=== PATIENT | male | born 1995 | race Caucasian/White ===

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

== ENCOUNTER → 2017-06-22 | Outpatient (REF) | payer OTHER | LOC: M LAB REF 10:04 | DX: R50.9 Fever, unspecified (principal); R05 Cough | CPT/HCPCS: 87633 ==

== ENCOUNTER 2018-12-05 06:35 | Emergency (ER) | payer OTHER, SELFPAY ==
[~2018-12-05] VITALS: Ht 180.3 cm; Wt 90.9 kg
[~2018-12-05 06:35] MED LIST changes: +AMOX875T PO; +CLIN1SOL; +ZOFR4TAB14 PO; -[UNRECOGNIZED DRUG - CODE]
[2018-12-05] MEDS ORDERED: NS 1,000 ML IV ONE (07:15)
[2018-12-05 08:02] VITALS: BP 132/60
== END 2018-12-05 08:12 | disposition home or self-care (01) ==
LOC: M ED 07:34
DX: E86.0 Dehydration (principal); Z88.1 Allergy status to other antibiotic agents; Z88.2 Allergy status to sulfonamides

== ENCOUNTER 2019-03-29 14:04 | Emergency (ER) | payer SELFPAY ==
[~2019-03-29] VITALS: Ht 180.3 cm; Wt 95.5 kg
[2019-03-29] MEDS ORDERED: LIDOCAINE 1% MDV 20ML VIAL SC ONE (17:15)
--- NOTE | 2019-03-29 18:16 | REPVR ---
PROCEDURE INFORMATION: Exam: US Pelvis Limited, Male Exam date and time: 03/29/2019 6:01 PM Clinical history: 23 years old, male; Pain; Other: Coccyx; Additional info: Red, painful skin absces vs cellulitis TECHNIQUE: Imaging protocol: Real-time pelvic ultrasound with image documentation. COMPARISON: Pelvis, limited US 08/11/2016 8:28 PM FINDINGS: Soft tissues: Fluid-filled mass demonstrated in the soft tissues adjacent to the coccyx measures 9.9 x 2.2 x 3.1 cm, slightly smaller than demonstrated in 2017. Findings may represent a abscess versus pilonidal cyst. IMPRESSION: Fluid-filled mass demonstrated in the soft tissues adjacent to the coccyx measures 9.9 x 2.2 x 3.1 cm, slightly smaller than demonstrated in 2017. Findings may represent a abscess versus pilonidal cyst. Electronically signed by: Pedro Rodriguez On 03/29/2019 18:15:38 PM
[2019-03-29] MEDS ORDERED: CLINDAMYCIN 150 MG CAP PO ONE (19:00)
[2019-03-29] MEDS ORDERED: CLEO300C2 PO (19:02)
[2019-03-29 19:27] VITALS: BP 150/67
--- NOTE | 2019-03-30 10:28 | ED PDOC ---
Post-Departure Follow-Up dr boyer faxed formal report of pelvic us for fu Sofia Estrada MD Mar 30, 2019 10:28
== END 2019-03-29 19:42 | disposition home or self-care (01) ==
LOC: M ED 14:04
DX: L05.91 Pilonidal cyst without abscess (principal); F17.200 Nicotine dependence, unspecified, uncomplicated; Z88.1 Allergy status to other antibiotic agents; Z88.2 Allergy status to sulfonamides

== ENCOUNTER 2023-09-19 09:50 | Emergency (ER) | payer MEDICAID, OTHER, SELFPAY ==
[~2023-09-19] VITALS: Ht 180.3 cm; Wt 70.7 kg
[~2023-09-19 09:50] MED LIST changes: -DOXY100C; +DOXY100C3
[2023-09-19] MEDS: NS 1,000 ML IV ONE (12:24)
[2023-09-19] MEDS: KETOROLAC 30 MG/ML 1ML VIAL IV ONE (12:25)
[2023-09-19 12:32] LABS: BASO # 0.1 10^3/uL (0.0-0.2); BASO % 0.5 % (0.0-1.0); EOS # 0.1 10^3/uL (0.0-0.5); EOS % 0.6 % (0.0-3.0); HEMATOCRIT 42.2 % (42.0-52.0); HEMOGLOBIN 13.9 g/dl (13.5-17.5); LYMPH # 1.6 10^3/uL (1.5-5.0); LYMPH % 9.6 % (24.0-44.0); MEAN CORPUSCULAR HEMOGLOBIN 28.7 pg (27.0-33.0); MEAN CORPUSCULAR HGB CONC 32.9 g/dl (32.0-36.5); MONO # 0.9 10^3/uL (0.0-0.8); MONO % 5.3 % (2.0-8.0); NEUTROPHILS # 13.6 10^3/uL (1.5-8.5); NEUTROPHILS % 83.4 % (36.0-66.0); PLATELET COUNT, AUTOMATED 248 10^3/uL (150-450); RED BLOOD COUNT 4.85 10^6/uL (4.30-6.10); WHITE BLOOD COUNT 16.3 10^3/uL (4.0-10.0)
[2023-09-19 12:57] LABS: BLOOD UREA NITROGEN 11 MG/DL (9-23); CALCIUM LEVEL 9.6 MG/DL (8.5-10.1); CARBON DIOXIDE LEVEL 29 MMOL/L (20-31); CHLORIDE LEVEL 105 MMOL/L (98-107); GLOMERULAR FILTRATION RATE > 60.0 (>60); GLUCOSE, FASTING 81 MG/DL (60-100); POTASSIUM SERUM 4.6 MMOL/L (3.5-5.1); SODIUM LEVEL 138 MMOL/L (136-145)
[2023-09-19] MEDS: CLINDAMYCIN 900 MG in IV 1 EA IV ONE (13:00)
[2023-09-19 13:15] LABS: ERYTHROCYTE SEDIMENTATION RATE 52 mm/hr (0-15)
[2023-09-19] MEDS ORDERED: ISOVUE-370 76% 100ML VIAL As Ordered ONE (13:21)
[2023-09-19] MEDS ORDERED: CLEO300C2 PO (14:24)
[2023-09-19] MEDS ORDERED: KETO10TAB PO (14:24)
[2023-09-19] MEDS ORDERED: PERI0.126 PO (14:26)
[2023-09-19 14:45] VITALS: BP 121/62; TEMP 96.9; O2SAT 100
== END 2023-09-19 14:46 | disposition home or self-care (01) ==
LOC: M ED 09:50
DX: K02.9 Dental caries, unspecified (principal); J01.00 Acute maxillary sinusitis, unspecified; Z88.2 Allergy status to sulfonamides; Z88.8 Allergy status to other drugs, medicaments and biological substances
CPT/HCPCS: 70491; 80048; 85025; 85652; 86140; 96361; 96365; 96375; 99284; J0737; J1885; Q9967